=== PATIENT | female | born 1945 | race Caucasian/White ===

== ENCOUNTER 2017-03-20 19:24 | Inpatient (IN) | payer MEDICARE, OTHER ==
[2017-03-20] MEDS ORDERED: LACTULOSE 30ML CUP PO (22:00)
[2017-03-20] MEDS ORDERED: BISACODYL 10 MG SUPP PR (22:00)
[2017-03-20] MEDS: ATORVASTATIN 40 MG TAB PO (22:28)
[2017-03-20] MEDS: Insulin NOVOLOG SS MILD Algorithm (SS with meals and bedtime) SC (22:41)
[2017-03-20 23:21] LABS: ADD UMIC YES; UR ASCORBIC ACID NEGATIVE (NEGATIVE); UR BILIRUBIN (Dip) NEGATIVE (NEGATIVE); UR BLOOD (Dip) NEGATIVE (NEGATIVE); UR CLARITY CLEAR (CLEAR); UR COLOR YELLOW (YELLOW); UR GLUCOSE (Dip) 3+ mg/dL (NEGATIVE); UR KETONES (Dip) NEGATIVE (NEGATIVE); UR LEUKOCYTE ESTERASE (Dip) TRACE Leu/ul (NEGATIVE); UR NITRITE (Dip) NEGATIVE (NEGATIVE); UR RBC 1 /HPF (0-5); UR SPECIFIC GRAVITY (Dip) 1.012 (1.003-1.030); UR TOTAL PROTEIN (Dip) NEGATIVE (NEGATIVE); UR UROBILINOGEN (Dip) NEGATIVE (NEGATIVE); UR WBC 3 /HPF (0-5)
[2017-03-21] MEDS: ACCUCHECK AT 2AM (Patients on SS coverage) XX (02:35)
[2017-03-21] MEDS: PANTOPRAZOLE (EC) 40 MG TAB PO (06:24)
[2017-03-21] MEDS ORDERED: PENDING SANTYL ORDER FOR WOUND CARE XX (07:00)
[2017-03-21] MEDS: IPRATROPIUM (NEB) 0.5 MG/2.5 ML AMP INH ×3 (07:42→19:42)
[2017-03-21] MEDS: ALBUTEROL 0.083% (NEB) 2.5 MG/3 ML AMP INH ×3 (07:42→19:42)
[2017-03-21] MEDS: Insulin NOVOLOG SS MILD Algorithm (SS with meals and bedtime) SC ×4 (08:15→20:49)
[2017-03-21] MEDS: HYDROCODONE/APAP (7.5/325) TAB PO ×2 (08:16→20:49)
[2017-03-21 08:38] LABS: ADD MAN DIFF? NO
[2017-03-21 08:55] LABS: BASOPHIL # 0.1 10^3/ul (0.0-0.1); BASOPHILS % 0.9 % (0.0-2.0); EOSINOPHILS # 0.1 10^3/ul (0.0-0.5); EOSINOPHILS % 1.4 % (0.0-7.0); HEMATOCRIT 33.2 % (37.0-47.0); HEMOGLOBIN 11.1 g/dl (12.0-16.0); LYMPHOCYTES # 2.3 10^3/ul (0.8-2.9); LYMPHOCYTES % 39.6 % (15.0-51.0); MEAN CORPUSCULAR HEMOGLOBIN 29.2 pg (29.0-33.0); MEAN CORPUSCULAR HGB CONC 33.4 g/dl (32.0-37.0); MEAN CORPUSCULAR VOLUME 87.4 fl (82.0-101.0); MEAN PLATELET VOLUME 11.5 fl (7.4-10.4); MONOCYTE # 0.5 10^3/ul (0.3-0.9); MONOCYTES % 9.1 % (0.0-11.0); NEUTROPHIL # 2.8 10^3/ul (1.6-7.5); NEUTROPHILS % 48.8 % (39.0-77.0); PLATELET COUNT 306 10^3/UL (140-415); RED CELL DISTRIBUTION WIDTH 12.3 % (11.5-14.5)
[2017-03-21 08:55] LABS: WHITE BLOOD COUNT 5.7 10^3/ul (4.8-10.8)
[2017-03-21 09:21] LABS: ALANINE AMINOTRANSFERASE 32 IU/L (13-69); ALBUMIN 3.6 g/dl (3.3-4.9); ALKALINE PHOSPHATASE 80 IU/L (42-121); ANION GAP 13 (8-16); ASPARTATE AMINO TRANSFERASE 23 IU/L (15-46); BILIRUBIN,INDIRECT 0.2 mg/dl (0-1.1); BILIRUBIN,TOTAL 0.2 mg/dl (0.2-1.3); BLOOD UREA NITROGEN 32 mg/dl (7-20); CALCIUM 9.9 mg/dl (8.4-10.2); CARBON DIOXIDE 31 mmol/L (21-31); CHLORIDE 100 mmol/L (97-110); CREATININE 0.69 mg/dl (0.44-1.00); GLUCOSE 304 mg/dl (70-220); POTASSIUM 3.7 mmol/L (3.5-5.1); SODIUM 140 mmol/L (135-144); TOTAL PROTEIN 6.6 g/dl (6.1-8.1)
[2017-03-21] MEDS: ASPIRIN 325 MG TAB PO (09:32)
[2017-03-21] MEDS: AMLODIPINE 10 MG TAB PO (09:33)
[2017-03-21] MEDS: CLOPIDOGREL 75 MG TAB PO (09:33)
[2017-03-21] MEDS: DOCUSATE SODIUM 100 MG CAP PO ×2 (09:33→20:48)
[2017-03-21] MEDS: VALSARTAN 160 MG TAB PO (09:33)
[2017-03-21] MEDS: CHLORTHALIDONE 25 MG TAB PO (09:33)
[2017-03-21] MEDS: metFORMIN 500 MG TAB PO ×2 (09:33→17:33)
[2017-03-21] MEDS: LINAGLIPTIN 5 MG TABLET PO (09:34)
[2017-03-21] MEDS: METOPROLOL (XL) 50 MG TAB PO (09:34)
[2017-03-21] MEDS: EMPAGLIFLOZIN 10 MG TABLET PO (10:11)
[2017-03-21] MEDS: ATORVASTATIN 40 MG TAB PO (20:48)
[2017-03-21] MEDS: SENNA TAB PO (20:48)
[2017-03-21] MEDS: INSULIN GLARGINE [LANtus] 3 ML PEN SC (20:52)
[2017-03-22] MEDS: ACCUCHECK AT 2AM (Patients on SS coverage) XX (01:35)
[2017-03-22] MEDS: HYDROCODONE/APAP (7.5/325) TAB PO ×2 (06:37→20:41)
[2017-03-22] MEDS: PANTOPRAZOLE (EC) 40 MG TAB PO (06:37)
[2017-03-22] MEDS: Insulin NOVOLOG SS MILD Algorithm (SS with meals and bedtime) SC ×4 (07:05→20:38)
[2017-03-22] MEDS: metFORMIN 500 MG TAB PO ×2 (07:35→17:57)
[2017-03-22 08:00] LABS: ADD MAN DIFF? NO
[2017-03-22 08:10] LABS: WHITE BLOOD COUNT 7.7 10^3/ul (4.8-10.8)
[2017-03-22 08:10] LABS: BASOPHILS % 0.5 % (0.0-2.0); EOSINOPHILS # 0.1 10^3/ul (0.0-0.5); EOSINOPHILS % 1.4 % (0.0-7.0); HEMATOCRIT 33.7 % (37.0-47.0); HEMOGLOBIN 11.2 g/dl (12.0-16.0); LYMPHOCYTES # 2.9 10^3/ul (0.8-2.9); MEAN CORPUSCULAR HEMOGLOBIN 29.3 pg (29.0-33.0); MEAN CORPUSCULAR HGB CONC 33.2 g/dl (32.0-37.0); MEAN CORPUSCULAR VOLUME 88.2 fl (82.0-101.0); MONOCYTE # 0.7 10^3/ul (0.3-0.9); MONOCYTES % 9.4 % (0.0-11.0); NEUTROPHIL # 3.9 10^3/ul (1.6-7.5); NEUTROPHILS % 50.4 % (39.0-77.0); PLATELET COUNT 319 10^3/UL (140-415); RED BLOOD COUNT 3.82 10^6/ul (4.20-5.40); RED CELL DISTRIBUTION WIDTH 12.2 % (11.5-14.5)
[2017-03-22] MEDS: IPRATROPIUM (NEB) 0.5 MG/2.5 ML AMP INH ×3 (08:11→20:52)
[2017-03-22] MEDS: ALBUTEROL 0.083% (NEB) 2.5 MG/3 ML AMP INH ×3 (08:11→20:52)
[2017-03-22 08:32] LABS: ANION GAP 14 (8-16); BLOOD UREA NITROGEN 37 mg/dl (7-20); CARBON DIOXIDE 30 mmol/L (21-31); CHLORIDE 100 mmol/L (97-110); CREATININE 0.82 mg/dl (0.44-1.00); GLUCOSE 89 mg/dl (70-220); MAGNESIUM 1.9 mg/dl (1.7-2.5); PHOSPHORUS 5.6 mg/dl (2.5-4.9); POTASSIUM 3.4 mmol/L (3.5-5.1); SODIUM 141 mmol/L (135-144)
[2017-03-22] MEDS: LINAGLIPTIN 5 MG TABLET PO (09:00)
[2017-03-22] MEDS: METOPROLOL (XL) 50 MG TAB PO (09:00)
[2017-03-22] MEDS: VALSARTAN 160 MG TAB PO (09:00)
[2017-03-22] MEDS: CHLORTHALIDONE 25 MG TAB PO (09:00)
[2017-03-22] MEDS: EMPAGLIFLOZIN 10 MG TABLET PO (12:57)
[2017-03-22] MEDS: DOCUSATE SODIUM 100 MG CAP PO ×2 (12:58→20:41)
[2017-03-22] MEDS: CLOPIDOGREL 75 MG TAB PO (12:58)
[2017-03-22] MEDS: ASPIRIN 325 MG TAB PO (12:58)
[2017-03-22] MEDS: AMLODIPINE 10 MG TAB PO (12:58)
[2017-03-22] MEDS: INSULIN GLARGINE [LANtus] 3 ML PEN SC (20:38)
[2017-03-22] MEDS: SENNA TAB PO (20:41)
[2017-03-22] MEDS: ATORVASTATIN 40 MG TAB PO (20:41)
[2017-03-23] MEDS: ACCUCHECK AT 2AM (Patients on SS coverage) XX (02:00)
[2017-03-23] MEDS: PANTOPRAZOLE (EC) 40 MG TAB PO (06:24)
[2017-03-23] MEDS: Insulin NOVOLOG SS MILD Algorithm (SS with meals and bedtime) SC ×4 (07:05→21:00)
[2017-03-23] MEDS: metFORMIN 500 MG TAB PO ×2 (08:44→18:04)
[2017-03-23] MEDS: EMPAGLIFLOZIN 10 MG TABLET PO (08:45)
[2017-03-23] MEDS: CLOPIDOGREL 75 MG TAB PO (09:01)
[2017-03-23] MEDS: LINAGLIPTIN 5 MG TABLET PO (09:01)
[2017-03-23] MEDS: CHLORTHALIDONE 25 MG TAB PO (09:01)
[2017-03-23] MEDS: DOCUSATE SODIUM 100 MG CAP PO ×2 (09:01→20:48)
[2017-03-23] MEDS: ASPIRIN 325 MG TAB PO (09:01)
[2017-03-23] MEDS: METOPROLOL (XL) 50 MG TAB PO (09:02)
[2017-03-23] MEDS: VALSARTAN 160 MG TAB PO (09:02)
[2017-03-23] MEDS: AMLODIPINE 10 MG TAB PO (09:04)
[2017-03-23] MEDS: IPRATROPIUM (NEB) 0.5 MG/2.5 ML AMP INH ×3 (09:09→20:19)
[2017-03-23] MEDS: ALBUTEROL 0.083% (NEB) 2.5 MG/3 ML AMP INH ×3 (09:09→20:19)
[2017-03-23] MEDS: HYDROCODONE/APAP (7.5/325) TAB PO (20:47)
[2017-03-23] MEDS: SENNA TAB PO (20:48)
[2017-03-23] MEDS: ATORVASTATIN 40 MG TAB PO (20:48)
[2017-03-23] MEDS: INSULIN GLARGINE [LANtus] 3 ML PEN SC (21:36)
[2017-03-24] MEDS: ACCUCHECK AT 2AM (Patients on SS coverage) XX (02:00)
[2017-03-24] MEDS: PANTOPRAZOLE (EC) 40 MG TAB PO (05:27)
[2017-03-24] MEDS: HYDROCODONE/APAP (7.5/325) TAB PO ×3 (05:28→20:40)
[2017-03-24] MEDS: Insulin NOVOLOG SS MILD Algorithm (SS with meals and bedtime) SC ×4 (07:05→20:47)
[2017-03-24] MEDS: EMPAGLIFLOZIN 10 MG TABLET PO (08:12)
[2017-03-24] MEDS: metFORMIN 500 MG TAB PO ×2 (08:12→17:46)
[2017-03-24] MEDS: ALBUTEROL 0.083% (NEB) 2.5 MG/3 ML AMP INH ×3 (08:33→20:00)
[2017-03-24] MEDS: IPRATROPIUM (NEB) 0.5 MG/2.5 ML AMP INH ×3 (08:33→20:00)
[2017-03-24] MEDS: ASPIRIN 325 MG TAB PO (08:43)
[2017-03-24] MEDS: CLOPIDOGREL 75 MG TAB PO (08:43)
[2017-03-24] MEDS: CHLORTHALIDONE 25 MG TAB PO (08:44)
[2017-03-24] MEDS: AMLODIPINE 10 MG TAB PO (08:44)
[2017-03-24] MEDS: LINAGLIPTIN 5 MG TABLET PO (08:44)
[2017-03-24] MEDS: VALSARTAN 160 MG TAB PO (08:44)
[2017-03-24] MEDS: DOCUSATE SODIUM 100 MG CAP PO ×2 (08:44→20:40)
[2017-03-24] MEDS: METOPROLOL (XL) 50 MG TAB PO (08:46)
[2017-03-24] MEDS: ATORVASTATIN 40 MG TAB PO (20:40)
[2017-03-24] MEDS: SENNA TAB PO (20:40)
[2017-03-24] MEDS: INSULIN GLARGINE [LANtus] 3 ML PEN SC (20:45)
[2017-03-25] MEDS: ACCUCHECK AT 2AM (Patients on SS coverage) XX (02:00)
[2017-03-25] MEDS: PANTOPRAZOLE (EC) 40 MG TAB PO (06:37)
[2017-03-25] MEDS: Insulin NOVOLOG SS MILD Algorithm (SS with meals and bedtime) SC ×5 (07:05→21:28)
[2017-03-25] MEDS: IPRATROPIUM (NEB) 0.5 MG/2.5 ML AMP INH ×3 (08:00→20:00)
[2017-03-25] MEDS: ALBUTEROL 0.083% (NEB) 2.5 MG/3 ML AMP INH ×4 (08:00→21:38)
[2017-03-25] MEDS: CLOPIDOGREL 75 MG TAB PO (09:28)
[2017-03-25] MEDS: LINAGLIPTIN 5 MG TABLET PO (09:28)
[2017-03-25] MEDS: DOCUSATE SODIUM 100 MG CAP PO ×2 (09:28→20:08)
[2017-03-25] MEDS: ASPIRIN 325 MG TAB PO (09:28)
[2017-03-25] MEDS: VALSARTAN 160 MG TAB PO (09:29)
[2017-03-25] MEDS: METOPROLOL (XL) 50 MG TAB PO (09:29)
[2017-03-25] MEDS: metFORMIN 500 MG TAB PO ×2 (09:29→17:16)
[2017-03-25] MEDS: AMLODIPINE 10 MG TAB PO (09:29)
[2017-03-25] MEDS: CHLORTHALIDONE 25 MG TAB PO (11:12)
[2017-03-25] MEDS: GLUCOSE GEL 24 GRAMS PO (11:12)
[2017-03-25] MEDS: EMPAGLIFLOZIN 10 MG TABLET PO (11:12)
[2017-03-25] MEDS: HYDROCODONE/APAP (7.5/325) TAB PO ×3 (11:15→21:29)
[2017-03-25] MEDS: SENNA TAB PO (20:08)
[2017-03-25] MEDS: ATORVASTATIN 40 MG TAB PO (20:08)
[2017-03-25] MEDS: INSULIN GLARGINE [LANtus] 3 ML PEN SC (21:28)
[2017-03-26] MEDS: ACCUCHECK AT 2AM (Patients on SS coverage) XX (02:01)
[2017-03-26] MEDS: HYDROCODONE/APAP (7.5/325) TAB PO ×4 (03:22→21:44)
[2017-03-26] MEDS: PANTOPRAZOLE (EC) 40 MG TAB PO (06:06)
[2017-03-26] MEDS: Insulin NOVOLOG SS MILD Algorithm (SS with meals and bedtime) SC ×4 (07:05→21:00)
[2017-03-26] MEDS: ASPIRIN 325 MG TAB PO (08:24)
[2017-03-26] MEDS: CLOPIDOGREL 75 MG TAB PO (08:24)
[2017-03-26] MEDS: AMLODIPINE 10 MG TAB PO (08:25)
[2017-03-26] MEDS: METOPROLOL (XL) 50 MG TAB PO (08:26)
[2017-03-26] MEDS: DOCUSATE SODIUM 100 MG CAP PO ×2 (08:26→21:00)
[2017-03-26] MEDS: VALSARTAN 160 MG TAB PO (08:26)
[2017-03-26] MEDS: CHLORTHALIDONE 25 MG TAB PO (09:00)
[2017-03-26] MEDS: LINAGLIPTIN 5 MG TABLET PO (09:00)
[2017-03-26] MEDS: EMPAGLIFLOZIN 10 MG TABLET PO (09:20)
[2017-03-26] MEDS: metFORMIN 500 MG TAB PO ×2 (09:20→17:35)
[2017-03-26] MEDS: IPRATROPIUM (NEB) 0.5 MG/2.5 ML AMP INH ×3 (09:57→20:24)
[2017-03-26] MEDS: ALBUTEROL 0.083% (NEB) 2.5 MG/3 ML AMP INH ×3 (09:57→20:24)
[2017-03-26] MEDS ORDERED: INSULIN GLARGINE [LANtus] 3 ML PEN SC (21:00)
[2017-03-26] MEDS: SENNA TAB PO (21:00)
[2017-03-26] MEDS: ATORVASTATIN 40 MG TAB PO (21:38)
[2017-03-27] MEDS: ACCUCHECK AT 2AM (Patients on SS coverage) XX (02:00)
[2017-03-27] MEDS: PANTOPRAZOLE (EC) 40 MG TAB PO ×2 (06:02→07:50)
[2017-03-27] MEDS: HYDROCODONE/APAP (7.5/325) TAB PO ×2 (06:07→20:55)
[2017-03-27] MEDS: IPRATROPIUM (NEB) 0.5 MG/2.5 ML AMP INH ×3 (07:40→20:39)
[2017-03-27] MEDS: ALBUTEROL 0.083% (NEB) 2.5 MG/3 ML AMP INH ×3 (07:41→20:39)
[2017-03-27] MEDS: metFORMIN 500 MG TAB PO ×2 (08:27→17:51)
[2017-03-27] MEDS: CLOPIDOGREL 75 MG TAB PO (09:04)
[2017-03-27] MEDS: ASPIRIN 325 MG TAB PO (09:04)
[2017-03-27] MEDS: LINAGLIPTIN 5 MG TABLET PO (09:05)
[2017-03-27] MEDS: DOCUSATE SODIUM 100 MG CAP PO ×2 (09:06→20:49)
[2017-03-27] MEDS: METOPROLOL (XL) 50 MG TAB PO (09:12)
[2017-03-27] MEDS: AMLODIPINE 10 MG TAB PO (09:13)
[2017-03-27] MEDS: CHLORTHALIDONE 25 MG TAB PO (09:14)
[2017-03-27] MEDS: VALSARTAN 160 MG TAB PO (10:08)
[2017-03-27] MEDS: ATORVASTATIN 40 MG TAB PO (20:46)
[2017-03-27] MEDS: INSULIN GLARGINE [LANtus] 3 ML PEN SC (20:49)
[2017-03-27] MEDS: SENNA TAB PO (20:50)
[2017-03-28] MEDS: ACCUCHECK AT 2AM (Patients on SS coverage) XX (02:00)
[2017-03-28] MEDS: HYDROCODONE/APAP (7.5/325) TAB PO ×2 (06:21→20:58)
[2017-03-28] MEDS: IPRATROPIUM (NEB) 0.5 MG/2.5 ML AMP INH ×3 (07:20→19:31)
[2017-03-28] MEDS: ALBUTEROL 0.083% (NEB) 2.5 MG/3 ML AMP INH ×3 (07:20→19:31)
[2017-03-28] MEDS: metFORMIN 500 MG TAB PO ×2 (07:50→17:21)
[2017-03-28] MEDS: EMPAGLIFLOZIN 10 MG TABLET PO (07:51)
[2017-03-28] MEDS: ASPIRIN 325 MG TAB PO (08:27)
[2017-03-28] MEDS: CHLORTHALIDONE 25 MG TAB PO (08:27)
[2017-03-28] MEDS: CLOPIDOGREL 75 MG TAB PO (08:28)
[2017-03-28] MEDS: AMLODIPINE 10 MG TAB PO (08:28)
[2017-03-28] MEDS: VALSARTAN 160 MG TAB PO (08:28)
[2017-03-28] MEDS: LINAGLIPTIN 5 MG TABLET PO (08:28)
[2017-03-28] MEDS: METOPROLOL (XL) 50 MG TAB PO (08:28)
[2017-03-28] MEDS: DOCUSATE SODIUM 100 MG CAP PO ×2 (08:29→21:00)
[2017-03-28] MEDS: ACETAMINOPHEN 325 MG TAB PO (16:30)
[2017-03-28] MEDS: ATORVASTATIN 40 MG TAB PO (20:59)
[2017-03-28] MEDS: SENNA TAB PO (21:00)
[2017-03-28] MEDS: INSULIN GLARGINE [LANtus] 3 ML PEN SC (21:54)
[2017-03-29] MEDS: ACCUCHECK AT 2AM (Patients on SS coverage) XX (02:00)
[2017-03-29] MEDS: HYDROCODONE/APAP (7.5/325) TAB PO ×2 (06:35→20:08)
[2017-03-29] MEDS: PANTOPRAZOLE (EC) 40 MG TAB PO (06:35)
[2017-03-29] MEDS: ALBUTEROL 0.083% (NEB) 2.5 MG/3 ML AMP INH ×3 (08:00→19:37)
[2017-03-29] MEDS: IPRATROPIUM (NEB) 0.5 MG/2.5 ML AMP INH ×3 (08:00→19:37)
[2017-03-29] MEDS: metFORMIN 500 MG TAB PO ×2 (08:49→17:49)
[2017-03-29] MEDS: LINAGLIPTIN 5 MG TABLET PO (08:53)
[2017-03-29] MEDS: ASPIRIN 325 MG TAB PO (08:54)
[2017-03-29] MEDS: DOCUSATE SODIUM 100 MG CAP PO ×2 (08:54→20:21)
[2017-03-29] MEDS: CLOPIDOGREL 75 MG TAB PO (08:55)
[2017-03-29] MEDS: AMLODIPINE 10 MG TAB PO (08:56)
[2017-03-29] MEDS: VALSARTAN 160 MG TAB PO (08:57)
[2017-03-29] MEDS: CHLORTHALIDONE 25 MG TAB PO (08:58)
[2017-03-29] MEDS: METOPROLOL (XL) 50 MG TAB PO (08:58)
[2017-03-29] MEDS: EMPAGLIFLOZIN 10 MG TABLET PO (09:12)
[2017-03-29] MEDS: ATORVASTATIN 40 MG TAB PO (20:08)
[2017-03-29] MEDS: SENNA TAB PO (20:21)
[2017-03-29] MEDS: INSULIN GLARGINE [LANtus] 3 ML PEN SC (20:21)
[2017-03-30] MEDS: ACCUCHECK AT 2AM (Patients on SS coverage) XX (02:00)
[2017-03-30] MEDS: PANTOPRAZOLE (EC) 40 MG TAB PO (06:18)
[2017-03-30] MEDS: IPRATROPIUM (NEB) 0.5 MG/2.5 ML AMP INH ×3 (07:19→20:14)
[2017-03-30] MEDS: ALBUTEROL 0.083% (NEB) 2.5 MG/3 ML AMP INH ×3 (07:19→20:14)
[2017-03-30] MEDS: EMPAGLIFLOZIN 10 MG TABLET PO (08:35)
[2017-03-30] MEDS: VALSARTAN 160 MG TAB PO (08:36)
[2017-03-30] MEDS: ASPIRIN 325 MG TAB PO (08:36)
[2017-03-30] MEDS: DOCUSATE SODIUM 100 MG CAP PO ×2 (08:37→21:13)
[2017-03-30] MEDS: metFORMIN 500 MG TAB PO ×2 (08:37→18:04)
[2017-03-30] MEDS: LINAGLIPTIN 5 MG TABLET PO (08:37)
[2017-03-30] MEDS: AMLODIPINE 10 MG TAB PO (08:37)
[2017-03-30] MEDS: CHLORTHALIDONE 25 MG TAB PO (08:38)
[2017-03-30] MEDS: METOPROLOL (XL) 50 MG TAB PO (08:40)
[2017-03-30] MEDS: CLOPIDOGREL 75 MG TAB PO (08:40)
[2017-03-30] MEDS: HYDROCODONE/APAP (7.5/325) TAB PO (10:50)
[2017-03-30] MEDS: SENNA TAB PO (21:00)
[2017-03-30] MEDS: ATORVASTATIN 40 MG TAB PO (21:14)
[2017-03-30] MEDS: INSULIN GLARGINE [LANtus] 3 ML PEN SC (21:21)
[2017-03-31] MEDS: ACCUCHECK AT 2AM (Patients on SS coverage) XX (02:00)
[2017-03-31] MEDS: PANTOPRAZOLE (EC) 40 MG TAB PO (06:38)
[2017-03-31] MEDS: EMPAGLIFLOZIN 10 MG TABLET PO (08:12)
[2017-03-31] MEDS: HYDROCODONE/APAP (7.5/325) TAB PO (08:13)
[2017-03-31] MEDS: metFORMIN 500 MG TAB PO ×2 (08:14→19:30)
[2017-03-31] MEDS: DOCUSATE SODIUM 100 MG CAP PO ×2 (08:35→20:39)
[2017-03-31] MEDS: LINAGLIPTIN 5 MG TABLET PO (08:36)
[2017-03-31] MEDS: CLOPIDOGREL 75 MG TAB PO (08:36)
[2017-03-31] MEDS: AMLODIPINE 10 MG TAB PO (08:36)
[2017-03-31] MEDS: METOPROLOL (XL) 50 MG TAB PO (08:36)
[2017-03-31] MEDS: VALSARTAN 160 MG TAB PO (08:37)
[2017-03-31] MEDS: CHLORTHALIDONE 25 MG TAB PO (08:37)
[2017-03-31] MEDS: IPRATROPIUM (NEB) 0.5 MG/2.5 ML AMP INH ×3 (09:05→19:51)
[2017-03-31] MEDS: ALBUTEROL 0.083% (NEB) 2.5 MG/3 ML AMP INH ×3 (09:06→19:51)
[2017-03-31] MEDS: ASPIRIN 325 MG TAB PO (09:19)
[2017-03-31] MEDS: ATORVASTATIN 40 MG TAB PO (20:39)
[2017-03-31] MEDS: SENNA TAB PO (20:39)
[2017-03-31] MEDS: INSULIN GLARGINE [LANtus] 3 ML PEN SC (20:42)
[2017-04-01] MEDS: ACCUCHECK AT 2AM (Patients on SS coverage) XX (02:00)
[2017-04-01] MEDS: PANTOPRAZOLE (EC) 40 MG TAB PO (06:44)
[2017-04-01] MEDS: metFORMIN 500 MG TAB PO ×2 (08:15→18:40)
[2017-04-01] MEDS: EMPAGLIFLOZIN 10 MG TABLET PO (08:15)
[2017-04-01] MEDS: ALBUTEROL 0.083% (NEB) 2.5 MG/3 ML AMP INH ×3 (08:30→21:55)
[2017-04-01] MEDS: IPRATROPIUM (NEB) 0.5 MG/2.5 ML AMP INH ×3 (08:30→21:54)
[2017-04-01] MEDS: CHLORTHALIDONE 25 MG TAB PO (09:18)
[2017-04-01] MEDS: ASPIRIN 325 MG TAB PO (09:18)
[2017-04-01] MEDS: AMLODIPINE 10 MG TAB PO (09:18)
[2017-04-01] MEDS: LINAGLIPTIN 5 MG TABLET PO (09:19)
[2017-04-01] MEDS: METOPROLOL (XL) 50 MG TAB PO (09:19)
[2017-04-01] MEDS: DOCUSATE SODIUM 100 MG CAP PO ×2 (09:19→20:38)
[2017-04-01] MEDS: CLOPIDOGREL 75 MG TAB PO (09:19)
[2017-04-01] MEDS: VALSARTAN 160 MG TAB PO (09:19)
[2017-04-01] MEDS: MAGNESIUM HYDROXIDE 30ML CUP PO ×2 (09:24→09:30)
[2017-04-01] MEDS: SENNA TAB PO (20:38)
[2017-04-01] MEDS: ATORVASTATIN 40 MG TAB PO (20:38)
[2017-04-01] MEDS: INSULIN GLARGINE [LANtus] 3 ML PEN SC (20:40)
[2017-04-01] MEDS: HYDROCODONE/APAP (7.5/325) TAB PO (20:42)
[2017-04-02] MEDS: ACCUCHECK AT 2AM (Patients on SS coverage) XX (02:00)
[2017-04-02] MEDS: PANTOPRAZOLE (EC) 40 MG TAB PO (06:30)
[2017-04-02] MEDS: ALBUTEROL 0.083% (NEB) 2.5 MG/3 ML AMP INH ×3 (08:00→20:39)
[2017-04-02] MEDS: IPRATROPIUM (NEB) 0.5 MG/2.5 ML AMP INH ×3 (08:00→20:39)
[2017-04-02] MEDS: EMPAGLIFLOZIN 10 MG TABLET PO (08:53)
[2017-04-02] MEDS: metFORMIN 500 MG TAB PO ×2 (08:53→17:29)
[2017-04-02] MEDS: DOCUSATE SODIUM 100 MG CAP PO ×2 (08:54→21:44)
[2017-04-02] MEDS: CHLORTHALIDONE 25 MG TAB PO (08:55)
[2017-04-02] MEDS: CLOPIDOGREL 75 MG TAB PO (08:55)
[2017-04-02] MEDS: VALSARTAN 160 MG TAB PO (08:55)
[2017-04-02] MEDS: METOPROLOL (XL) 50 MG TAB PO (08:56)
[2017-04-02] MEDS: LINAGLIPTIN 5 MG TABLET PO (08:56)
[2017-04-02] MEDS: ASPIRIN 325 MG TAB PO (09:02)
[2017-04-02] MEDS: AMLODIPINE 10 MG TAB PO (09:03)
[2017-04-02] MEDS: ATORVASTATIN 40 MG TAB PO (21:44)
[2017-04-02] MEDS: SENNA TAB PO (21:44)
[2017-04-02] MEDS: INSULIN GLARGINE [LANtus] 3 ML PEN SC (21:46)
[2017-04-02] MEDS: HYDROCODONE/APAP (7.5/325) TAB PO (21:51)
[2017-04-03] MEDS: ACCUCHECK AT 2AM (Patients on SS coverage) XX (01:46)
[2017-04-03] MEDS: PANTOPRAZOLE (EC) 40 MG TAB PO (06:25)
[2017-04-03] MEDS: EMPAGLIFLOZIN 10 MG TABLET PO (08:30)
[2017-04-03] MEDS: metFORMIN 500 MG TAB PO (08:30)
[2017-04-03] MEDS: IPRATROPIUM (NEB) 0.5 MG/2.5 ML AMP INH (08:46)
[2017-04-03] MEDS: ALBUTEROL 0.083% (NEB) 2.5 MG/3 ML AMP INH (08:46)
[2017-04-03] MEDS: CLOPIDOGREL 75 MG TAB PO (09:47)
[2017-04-03] MEDS: ASPIRIN 325 MG TAB PO (09:47)
[2017-04-03] MEDS: METOPROLOL (XL) 50 MG TAB PO (09:48)
[2017-04-03] MEDS: LINAGLIPTIN 5 MG TABLET PO (09:48)
[2017-04-03] MEDS: DOCUSATE SODIUM 100 MG CAP PO (09:48)
[2017-04-03] MEDS: CHLORTHALIDONE 25 MG TAB PO (09:48)
[2017-04-03] MEDS: AMLODIPINE 10 MG TAB PO (09:48)
[2017-04-03] MEDS: VALSARTAN 160 MG TAB PO (09:48)
== END 2017-04-03 14:30 | disposition home health service (06) | DRG 57 ==
LOC: VRC 03-28 15:05
PROC: F07Z9FZ Gait Training/Functional Ambulation Treatment using Assistive, Adaptive, Supportive or Protective Equipment (ICD-10-PCS; principal; 2017-03-20)
PROC: F07Z8FZ Transfer Training Treatment using Assistive, Adaptive, Supportive or Protective Equipment (ICD-10-PCS; 2017-03-20)
PROC: F07Z5FZ Bed Mobility Treatment using Assistive, Adaptive, Supportive or Protective Equipment (ICD-10-PCS; 2017-03-20)
PROC: F08Z2FZ Grooming/Personal Hygiene Treatment using Assistive, Adaptive, Supportive or Protective Equipment (ICD-10-PCS; 2017-03-20)
PROC: F08Z0FZ Bathing/Showering Techniques Treatment using Assistive, Adaptive, Supportive or Protective Equipment (ICD-10-PCS; 2017-03-20)
PROC: F08Z1FZ Dressing Techniques Treatment using Assistive, Adaptive, Supportive or Protective Equipment (ICD-10-PCS; 2017-03-20)
DX: I69.351 Hemiplegia and hemiparesis following cerebral infarction affecting right dominant side (principal); E11.40 Type 2 diabetes mellitus with diabetic neuropathy, unspecified; D64.9 Anemia, unspecified; I10 Essential (primary) hypertension; I25.10 Atherosclerotic heart disease of native coronary artery without angina pectoris; E78.5 Hyperlipidemia, unspecified; F06.31 Mood disorder due to known physiological condition with depressive features; G89.4 Chronic pain syndrome; Z79.4 Long term (current) use of insulin; Z91.81 History of falling
CPT/HCPCS: 80048; 80053; 81001; 82962; 83735; 84100; 85025; 87081; 87086; 92507; 92523; 94640; 94664; 97110; 97112; 97116; 97150; 97163; 97167; 97530; 97535